=== PATIENT | male | born 1970 | race Two or more races ===

== ENCOUNTER 2016-07-01 15:44 | Emergency (ER) | payer OTHER ==
[~2016-07-01] VITALS: Ht 182.9 cm; Wt 81.6 kg
[2016-07-01] MEDS ORDERED: IBUPROFEN600 MG ORAL (16:30)
[2016-07-01 16:50] VITALS: BP 152/99
--- NOTE | 2016-07-01 17:51 | Emergency Room Report ---
History of Present Illness General Chief Complaint: Lower Extremity Injury Source: Patient Present Illness HPI The patient is a 45-year-old male who denies any medical history presenting for left knee pain. The patient states that he slipped at work and fell onto the left knee.Pt is now complaining of pain described as a 5/10 dull ache. It does not radiate from the knee. It is worse with movement. He denies any prior injury to the knee. He denies any other symptoms such as numbness, tingling. Allergies: Coded Allergies: No Known Allergies (Unverified , 07/01/16) Patient History Past Medical History: see triage record Pertinent Family History: none Reviewed Nursing Documentation: PMH: Agreed, PSxH: Agreed Nursing Documentation-PMH Past Medical History: No Stated History Review of Systems All Other Systems: negative except mentioned in HPI Physical Exam Vital Signs Date Time Temp Pulse Resp B/P Pulse Ox O2 Delivery O2 Flow Rate FiO2 07/01/16 15:51 98.4 85 20 156/90 95 Room Air Sp02 EP Interpretation: reviewed, normal General Appearance: no apparent distress, alert, GCS 15, non-toxic Head: normocephalic, atraumatic Eyes: bilateral eye PERRL, bilateral eye normal inspection ENT: hearing grossly normal, normal pharynx, no angioedema, normal voice Neck: full range of motion, supple/symm/no masses Musculoskeletal: back normal, normal range of motion, no calf tenderness, tender - TTP over the L medial knee Neurologic: alert, oriented x3, responsive, motor strength/tone normal, sensory intact, speech normal Psychiatric: judgement/insight normal, memory normal, mood/affect normal, no suicidal/homicidal ideation Skin: normal color, no rash, warm/dry, well hydrated Lymphatic: no adenopathy Procedures Splinting Splinting : Consent: Verbal Location: L knee Pre-Made Type: LISET wrap Pre-Proc Neuro Vasc Exam: normal Post-Proc Neuro Vasc Exam: normal Patient Tolerated: Well Complications: None Medical Decision Making PA Attestation Dr. Dial is my supervising physician. Patient management was discussed with my supervising physician Diagnostic Impression: Primary Impression: Strain of knee Qualified Codes: S86.912A - Strain of unspecified muscle(s) and tendon(s) at lower leg level, left leg, initial encounter ER Course The patient is a 45-year-old male who denies any medical history presenting for left knee pain. Ddx considered include but not limited to sprain/strain, fracture, contusion Physical exam: Vitals within normal limits. Left knee: No obvious deformity. No edema. There is tenderness to palpation over the medial joint line. No laxity. Normal gait X-ray of the left knee is unremarkable. LISET wrap was placed over the left knee and the patient is given a prescription for Motrin. He will follow up with workers compensation. ER precautions given Other X-Ray Diagnostic Results Other X-Ray Diagnostic Results : X-Ray Ordered: L knee Date: Jul 01, 2016 EP Interpretation: Yes Findings: no fractures, no dislocation, no soft tissue swelling Number of Views: 3 PA Scribe Text I am acting as scribe for my supervising physician. My supervising physician's interpretation of the L knee xrays are there are no fractures, dislocations or soft tissue swelling. Last Vital Signs Date Time Temp Pulse Resp B/P Pulse Ox O2 Delivery O2 Flow Rate FiO2 07/01/16 16:50 98.0 07/01/16 16:50 74 17 152/99 97 Room Air Status: improved Disposition: HOME, SELF-CARE Condition: Improved Scripts Ibuprofen* (MOTRIN*) 600 Mg Tablet 600 MG ORAL Q8H Y for For Pain, #30 TAB 0 Refills Prov: ISAIAS BARAHONA 07/01/16 Referrals: NOT CHOSEN [facility]/MD,REFERRING (PCP) Patient Instructions: Knee Sprain Additional Instructions: I discussed my findings with the patient. All questions and concerns have been answered. Treatment and medication compliance have been addressed. I advised the patient that they need to follow up with PMD in 3-5 days. Return to ED if pain remains or worsens, numbness or tingling occurs, new rash is noticed, fever is noticed, or if needed for any reason. Patient verbalized understanding of discharge instructions. ISAIAS BARAHONA Jul 01, 2016 17:51
== END 2016-07-01 16:50 | disposition home or self-care (01) ==
LOC: EMR 16:40
DX: S86.912A Strain of unspecified muscle(s) and tendon(s) at lower leg level, left leg, initial encounter (principal); W01.0XXA Fall on same level from slipping, tripping and stumbling without subsequent striking against object, initial encounter; Y93.9 Activity, unspecified; Y99.0 Civilian activity done for income or pay
CPT/HCPCS: 29530; 99283